=== PATIENT | female | born 1935 | race African-American/Black ===

== ENCOUNTER 2022-07-10 15:40 | Inpatient (IN) | payer MEDICARE, BC ==
[~2022-07-10] VITALS: Ht 160 cm; Wt 47.8 kg
[2022-07-10 17:32] LABS: BASOPHILS % 0.3 % (0.0-2.0); EOSINOPHILS % 0.5 % (0.0-5.0); HEMATOCRIT. 29.2 % (36.0-48.0); HEMOGLOBIN. 9.3 g/dL (12.0-16.0); LYMPHOCYTES % 10.8 % (20.0-50.0); MEAN CORPUSCULAR HEMOGLOBIN 27.7 pg (28.0-32.0); MEAN PLATELET VOLUME 7.4 fl (7.4-10.4); MONOCYTES % 4.3 % (2.0-8.0); NEUTROPHILS % 84.1 % (40.0-76.0); PLATELET 358 x1000/uL (130-400); RED BLOOD CELL COUNT 3.36 mill/uL (4.2-5.4); RED CELL DISTRIBUTION WIDTH 16.8 % (11.6-14.6)
[2022-07-10 17:45] LABS: CHLORIDE 108 mEq/L (98-107)
[2022-07-10 17:55] LABS: ETHANOL BLOOD < 10 mg/dL
[2022-07-10 19:45] LABS: CLARITY URINE CLOUDY (CLEAR); COLOR URINE YELLOW (YELLOW); KETONES URINE TRACE (NEGATIVE); LEUKOCYTE ESTERASE URINE 2+ (NEGATIVE); NITRITE URINE POSITIVE (NEGATIVE); OCCULT BLOOD URINE 3+ (NEGATIVE); PH URINE 5.5 (4.5-8.0); PROTEIN URINE 2+ (NEGATIVE); UROBILINOGEN URINE 0.2 E.U./dL (0.2-1.0)
[2022-07-10 20:29] LABS: *AMPHETAMINES SCREEN URINE NEGATIVE (NEGATIVE); *BARBITURATES SCREEN URINE NEGATIVE (NEGATIVE); *BENZODIAZEPINES SCREEN URINE NEGATIVE (NEGATIVE); *COCAINE SCREEN URINE NEGATIVE (NEGATIVE); CANNABINOID URINE SCREEN NEGATIVE (NEGATIVE); METHADONE URINE SCREEN NEGATIVE (NEGATIVE); OPIATES URINE SCREEN NEGATIVE (NEGATIVE); PHENCYCLIDINE URINE SCREEN NEGATIVE (NEGATIVE)
[2022-07-10] MEDS ORDERED: CLONIDINE 0.1MG TABLET PO PRN (22:30)
[2022-07-10] MEDS ORDERED: CEFTRIAXONE 1 G PREMIX 50 ML IV SCH (22:30)
[2022-07-10] MEDS ORDERED: ACETAMINOPHEN 325MG TABLET PO PRN ×2 (22:30)
[2022-07-10] MEDS ORDERED: MAGNESIUM/ALUMINUM HYDROXIDE/SIMETHICONE 30ML UDC PO PRN (22:30)
[2022-07-10] MEDS ORDERED: GUAIFENESIN 200MG/10ML SUGAR FREE UDC PO PRN (22:30)
[2022-07-10] MEDS ORDERED: ONDANSETRON HCL 4MG/2ML INJ IV PRN (22:30)
[2022-07-10] MEDS ORDERED: DOCUSATE SODIUM 100MG CAPSULE PO PRN (22:30)
[2022-07-10] MEDS ORDERED: IPRATROPIUM/ALBUTEROL 0.5-3(2.5)MG/3ML NEB HHN PRN (22:30)
[2022-07-10] MEDS ORDERED: TRAMADOL 50MG TABLET PO PRN (22:30)
[2022-07-10] MEDS ORDERED: IOHEXOL-350 100 ML BOTTLE ONE (23:13)
[2022-07-10 23:30] LABS: PHOSPHORUS 3.4 mg/dL (2.5-4.9)
[2022-07-11 01:59] LABS: FOLIC ACID (FOLATE) SERUM 37.1 ng/mL (>5.38)
[2022-07-11 06:10] LABS: BASOPHILS % 0.5 % (0.0-2.0); EOSINOPHILS % 2.1 % (0.0-5.0); HEMATOCRIT. 24.3 % (36.0-48.0); HEMOGLOBIN. 7.8 g/dL (12.0-16.0); MEAN CORPUSCULAR HEMOGLOBIN 27.1 pg (28.0-32.0); MEAN CORPUSCULAR VOLUME 84.6 fL (81.0-99.0); MEAN PLATELET VOLUME 6.9 fl (7.4-10.4); MONOCYTES % 9.8 % (2.0-8.0); NEUTROPHILS % 65.6 % (40.0-76.0); PLATELET 299 x1000/uL (130-400); RED BLOOD CELL COUNT 2.87 mill/uL (4.2-5.4); RED CELL DISTRIBUTION WIDTH 16.9 % (11.6-14.6)
[2022-07-11 06:24] LABS: CHLORIDE 110 mEq/L (98-107)
[2022-07-11 06:40] LABS: HDL CHOLESTEROL 71 mg/dL (40-59); LDL CHOLESTEROL 60 mg/dL (5-100); T4 FREE 1.05 ng/dL (0.76-1.46)
[2022-07-11] MEDS: FAMOTIDINE 20MG TABLET PO SCH (09:29)
[2022-07-11] MEDS ORDERED: NALOXONE HCL 0.4MG/ML VIAL IV PRN (10:15)
[2022-07-11 16:00] VITALS: BP 124/71
[2022-07-11 16:31] VITALS: BP 124/71
[2022-07-11] MEDS ORDERED: INFLUENZA VACCINE 05/PF 0.5 ML SYRINGE IM ONE (18:00)
[2022-07-11] MEDS: ENOXAPARIN 30MG/0.3ML SYR SUBCUT SCH (18:22)
[2022-07-11] MEDS: ASPIRIN 81MG TABLET PO SCH (18:22)
[2022-07-11 20:00] VITALS: BP 147/72
[2022-07-11] MEDS: ATORVASTATIN CALCIUM 40MG TABLET PO SCH (21:36)
[2022-07-11] MEDS: CEFTRIAXONE 1,000 MG in DEXTROSE 5% WATER 50 ML IV SCH (22:00)
[2022-07-12] VITALS (13 sets, daily range): BP systolic 114–136; BP diastolic 50–89
[2022-07-12] MEDS: SODIUM CHLORIDE 0.45% 1,000 ML IV SCH ×2 (05:01→18:55)
[2022-07-12 06:33] LABS: HEMATOCRIT. 24.2 % (36.0-48.0); HEMOGLOBIN. 7.9 g/dL (12.0-16.0); MEAN CORPUSCULAR HEMOGLOBIN 27.3 pg (28.0-32.0); MEAN CORPUSCULAR VOLUME 83.8 fL (81.0-99.0); MEAN PLATELET VOLUME 7.1 fl (7.4-10.4); PLATELET 305 x1000/uL (130-400); RED BLOOD CELL COUNT 2.89 mill/uL (4.2-5.4); RED CELL DISTRIBUTION WIDTH 16.3 % (11.6-14.6)
[2022-07-12 07:29] LABS: CHLORIDE 107 mEq/L (98-107)
[2022-07-12] MEDS: ASPIRIN 81MG TABLET PO SCH (09:00)
[2022-07-12] MEDS: FAMOTIDINE 20MG TABLET PO SCH (09:17)
[2022-07-12] MEDS: ENOXAPARIN 30MG/0.3ML SYR SUBCUT SCH (17:50)
[2022-07-12 20:17] LABS: PLATELET ESTIMATE NORMAL
[2022-07-12] MEDS: ATORVASTATIN CALCIUM 40MG TABLET PO SCH (21:18)
[2022-07-12] MEDS: CEFTRIAXONE 1,000 MG in DEXTROSE 5% WATER 50 ML IV SCH (21:19)
[2022-07-13] VITALS (34 sets, daily range): BP systolic 66–184; BP diastolic 22–104
[2022-07-13 06:14] LABS: CHLORIDE 107 mEq/L (98-107)
[2022-07-13 06:19] LABS: BASOPHILS % 0.7 % (0.0-2.0); EOSINOPHILS % 4.2 % (0.0-5.0); HEMATOCRIT. 22.9 % (36.0-48.0); HEMOGLOBIN. 7.5 g/dL (12.0-16.0); LYMPHOCYTES % 34.7 % (20.0-50.0); MEAN CORPUSCULAR HEMOGLOBIN 27.5 pg (28.0-32.0); MEAN CORPUSCULAR VOLUME 84.3 fL (81.0-99.0); MEAN PLATELET VOLUME 7.1 fl (7.4-10.4); MONOCYTES % 10.8 % (2.0-8.0); NEUTROPHILS % 49.6 % (40.0-76.0); PLATELET 289 x1000/uL (130-400); RED BLOOD CELL COUNT 2.72 mill/uL (4.2-5.4); RED CELL DISTRIBUTION WIDTH 16.5 % (11.6-14.6)
[2022-07-13] MEDS: SODIUM CHLORIDE 0.45% 1,000 ML IV SCH (08:34)
[2022-07-13] MEDS: ASPIRIN 81MG TABLET PO SCH (09:23)
[2022-07-13] MEDS: FAMOTIDINE 20MG TABLET PO SCH (09:23)
[2022-07-13] MEDS: CLOPIDOGREL 75MG TABLET PO SCH (11:09)
[2022-07-13] MEDS ORDERED: ATORVASTATIN CALCIUM 40MG TABLET PO SCH (21:00)
[2022-07-13] MEDS: CEFTRIAXONE 1,000 MG in DEXTROSE 5% WATER 50 ML IV SCH (21:34)
[2022-07-13] MEDS ORDERED: HALOPERIDOL LACTATE 5MG/ML VIAL IM NR (22:15)
[2022-07-14] VITALS (42 sets, daily range): BP systolic 85–152; BP diastolic 32–92
[2022-07-14 05:58] LABS: CHLORIDE 109 mEq/L (98-107)
[2022-07-14 06:09] LABS: BASOPHILS % 0.5 % (0.0-2.0); EOSINOPHILS % 3.7 % (0.0-5.0); HEMATOCRIT. 23.8 % (36.0-48.0); HEMOGLOBIN. 7.7 g/dL (12.0-16.0); LYMPHOCYTES % 25.5 % (20.0-50.0); MEAN CORPUSCULAR HEMOGLOBIN 27.8 pg (28.0-32.0); MEAN CORPUSCULAR VOLUME 85.7 fL (81.0-99.0); MEAN PLATELET VOLUME 6.6 fl (7.4-10.4); MONOCYTES % 13.5 % (2.0-8.0); NEUTROPHILS % 56.8 % (40.0-76.0); PLATELET 290 x1000/uL (130-400); RED BLOOD CELL COUNT 2.77 mill/uL (4.2-5.4); RED CELL DISTRIBUTION WIDTH 16.2 % (11.6-14.6)
[2022-07-14] MEDS ORDERED: POTASSIUM CHLORIDE 20MEQ/PACKET PO NR (07:45)
[2022-07-14] MEDS: CLOPIDOGREL 75MG TABLET PO SCH (08:35)
[2022-07-14] MEDS: ASPIRIN 81MG TABLET PO SCH (08:35)
[2022-07-14] MEDS: FAMOTIDINE 20MG TABLET PO SCH (08:35)
[2022-07-14] MEDS: QUETIAPINE FUMARATE 25MG TABLET PO SCH (21:36)
[2022-07-14] MEDS: CEFTRIAXONE 1,000 MG in DEXTROSE 5% WATER 50 ML IV SCH (21:36)
[2022-07-15] VITALS (46 sets, daily range): BP systolic 61–150; BP diastolic 34–87
[2022-07-15 06:23] LABS: BASOPHILS % 0.7 % (0.0-2.0); EOSINOPHILS % 5.3 % (0.0-5.0); HEMATOCRIT. 25.9 % (36.0-48.0); HEMOGLOBIN. 8.4 g/dL (12.0-16.0); LYMPHOCYTES % 36.9 % (20.0-50.0); MEAN CORPUSCULAR HEMOGLOBIN 27.1 pg (28.0-32.0); MEAN CORPUSCULAR VOLUME 84.2 fL (81.0-99.0); MEAN PLATELET VOLUME 6.8 fl (7.4-10.4); MONOCYTES % 11.5 % (2.0-8.0); NEUTROPHILS % 45.6 % (40.0-76.0); PLATELET 320 x1000/uL (130-400); RED BLOOD CELL COUNT 3.08 mill/uL (4.2-5.4); RED CELL DISTRIBUTION WIDTH 16.3 % (11.6-14.6)
[2022-07-15 06:38] LABS: CHLORIDE 110 mEq/L (98-107)
[2022-07-15] MEDS: ASPIRIN 81MG TABLET PO SCH (09:16)
[2022-07-15] MEDS: FAMOTIDINE 20MG TABLET PO SCH (09:16)
[2022-07-15] MEDS: CLOPIDOGREL 75MG TABLET PO SCH (09:16)
[2022-07-15] MEDS ORDERED: CLOP75TA15 PO (15:55)
[2022-07-15] MEDS ORDERED: ASPI-1160 PO (15:55)
[2022-07-15] MEDS ORDERED: QUET25TA PO (15:55)
[2022-07-15] MEDS ORDERED: FAMO20TA8 PO (15:55)
[2022-07-15] MEDS: CEFTRIAXONE 1,000 MG in DEXTROSE 5% WATER 50 ML IV SCH (21:20)
[2022-07-15] MEDS: QUETIAPINE FUMARATE 25MG TABLET PO SCH (21:20)
[2022-07-23] MEDS ORDERED: FERR325T6 PO (11:19)
[2022-07-23] MEDS ORDERED: ERGO50CA PO (11:26)
== END 2022-07-15 23:01 | DRG 64 ==
LOC: ER 15:40 → EDBEDREQSVC 16:09 → MICUSO 19:21 → EDBEDREQ 19:36 → EDBEDREQTM 19:36 → 3WST 07-11 15:59 → CVICU 07-12 20:40
PROVIDERS: ADMIT Internal Medicine; ATTEND Internal Medicine
PROC: 4A00X4Z Measurement of Central Nervous Electrical Activity, External Approach (ICD-10-PCS; principal; 2022-07-12)
DX: I63.9 Cerebral infarction, unspecified (principal); G93.41 Metabolic encephalopathy; E46 Unspecified protein-calorie malnutrition; N39.0 Urinary tract infection, site not specified; G93.40 Encephalopathy, unspecified; I65.21 Occlusion and stenosis of right carotid artery; E78.5 Hyperlipidemia, unspecified; I35.1 Nonrheumatic aortic (valve) insufficiency; I10 Essential (primary) hypertension; D63.8 Anemia in other chronic diseases classified elsewhere; D50.9 Iron deficiency anemia, unspecified; Z20.822 Contact with and (suspected) exposure to COVID-19; R47.01 Aphasia; H40.9 Unspecified glaucoma; I25.10 Atherosclerotic heart disease of native coronary artery without angina pectoris; F29 Unspecified psychosis not due to a substance or known physiological condition; R26.9 Unspecified abnormalities of gait and mobility; I71.21 Aneurysm of the ascending aorta, without rupture; R13.10 Dysphagia, unspecified; R29.703 NIHSS score 3; I07.1 Rheumatic tricuspid insufficiency; I73.9 Peripheral vascular disease, unspecified; Z79.899 Other long term (current) drug therapy; Z82.49 Family history of ischemic heart disease and other diseases of the circulatory system; Z86.73 Personal history of transient ischemic attack (TIA), and cerebral infarction without residual deficits; Z95.5 Presence of coronary angioplasty implant and graft
CPT/HCPCS: 36415; 70496; 70498; 70551; 71045; 80048; 80053; 80061; 80305; 80320; 81003; 82140; 82607; 82746; 82962; 83036; 83540; 83550; 83605; 83735; 83880; 84100; 84145; 84439; 84443; 84484; 85025; 86850; 86900; 86920; 87077; 87186; 87426; 92610; 93005; 93306; 93880; 93970; 95816; 97162; 97166; 97168; 99291; J0696; J1630; J1650; J7060; Q9967; G0480

== ENCOUNTER 2024-06-13 12:20 | Emergency (ER) | payer MEDICARE, BC ==
[~2024-06-13] VITALS: Ht 165.1 cm; Wt 59.0 kg
[~2024-06-13 12:20] MED LIST: ALPR-339 PO; ASPI-1160 PO; CLOP75TA15 PO; ERGO50CA PO; FAMO20TA8 PO; FERR325T6 PO; OLAN5TAB74 PO; QUET25TA PO
[2024-06-13 12:37] VITALS: O2SAT 99
[2024-06-13 13:52] LABS: CLARITY URINE CLOUDY (CLEAR); COLOR URINE YELLOW (YELLOW); GLUCOSE URINE NEGATIVE (NEGATIVE); KETONES URINE 1+ (NEGATIVE); LEUKOCYTE ESTERASE URINE TRACE (NEGATIVE); NITRITE URINE NEGATIVE (NEGATIVE); OCCULT BLOOD URINE 1+ (NEGATIVE); PH URINE 5.5 (4.5-8.0); PROTEIN URINE NEGATIVE (NEGATIVE); SPECIFIC GRAVITY URINE 1.016 (1.005-1.030); UROBILINOGEN URINE 0.2 E.U./dL (0.2-1.0)
[2024-06-13 14:30] LABS: MUCUS URINE 3+ /lpf (< = 2+)
[2024-06-13 14:31] LABS: BACTERIA URINE TRACE; RBC URINE 25-50 /hpf (0-2); SQUAMOUS EPITHELIAL CELL URINE NONE SEEN /lpf (RARE/1+)
[2024-06-13 15:39] LABS: BASOPHILS % 0.5 % (0.0-2.0); EOSINOPHILS % 1.2 % (0.0-5.0); HEMATOCRIT. 30.6 % (36.0-48.0); HEMOGLOBIN. 9.9 g/dL (12.0-16.0); LYMPHOCYTES % 15.7 % (20.0-50.0); MEAN CORPUSCULAR HEMOGLOBIN 28.7 pg (28.0-32.0); MEAN CORPUSCULAR HGB CONC 32.5 g/dL (31.0-37.0); MEAN CORPUSCULAR VOLUME 88.4 fL (81.0-99.0); MEAN PLATELET VOLUME 6.8 fl (7.4-10.4); MONOCYTES % 7.8 % (2.0-8.0); NEUTROPHILS % 74.8 % (40.0-76.0); PLATELET 235 x1000/uL (130-400); RED BLOOD CELL COUNT 3.46 mill/uL (4.2-5.4); WHITE BLOOD COUNT 6.5 x1000/uL (4.5-11.0)
[2024-06-13 15:45] LABS: CHLORIDE 112 mEq/L (98-107); POTASSIUM 3.9 mEq/L (3.5-5.1); SODIUM 141 mEq/L (136-145)
[2024-06-13 15:46] LABS: CALCIUM 8.5 mg/dL (8.7-10.4); CARBON DIOXIDE 19 mEq/L (21-32)
[2024-06-13 15:50] LABS: CREATININE 0.6 mg/dL (0.6-1.0)
[2024-06-13 15:51] LABS: GLUCOSE 70 mg/dL (70-105); UREA NITROGEN BLOOD 8 mg/dL (9-23)
[2024-06-13 15:52] VITALS: TEMP 36.55848
[2024-06-13 15:53] LABS: ALANINE AMINOTRANSFERASE 28 IU/L (10-49); ALBUMIN 3.2 g/dL (3.2-4.8); ASPARTATE AMINOTRANSFERASE 35 IU/L (<34); BILIRUBIN TOTAL 0.7 mg/dL (0.1-1.0); PROTEIN TOTAL 5.8 g/dL (6.0-8.3)
[2024-06-13 19:00] VITALS: BP 155/64; PULSE 78; RESP 18; O2SAT 100
== END 2024-06-13 20:13 ==
LOC: ER 12:20
DX: R33.9 Retention of urine, unspecified (principal); F03.90 Unspecified dementia, unspecified severity, without behavioral disturbance, psychotic disturbance, mood disturbance, and anxiety; E78.00 Pure hypercholesterolemia, unspecified; Z86.73 Personal history of transient ischemic attack (TIA), and cerebral infarction without residual deficits; Z79.82 Long term (current) use of aspirin; Z79.02 Long term (current) use of antithrombotics/antiplatelets
CPT/HCPCS: 36415; 51702; 80053; 81003; 85025; 99283; 99284